=== PATIENT | female | born 1995 | race African-American/Black ===

== ENCOUNTER 2021-12-18 21:45 | Emergency (ER) | payer OTHER ==
[2021-12-19] MEDS ORDERED: Morphine 4 MG/ML VIAL ONE (02:21)
== END 2021-12-19 02:46 | disposition home or self-care (01) ==
LOC: CSHERS 21:45
DX: K80.20 Calculus of gallbladder without cholecystitis without obstruction (principal); F17.210 Nicotine dependence, cigarettes, uncomplicated
CPT/HCPCS: 76705; J2270